=== PATIENT | female | born 1995 | race Caucasian/White ===

== ENCOUNTER 2017-06-20 08:23 | Emergency (ER) | payer BC ==
[~2017-06-20] VITALS: Ht 172.7 cm; Wt 96.2 kg
[2017-06-20 08:30] VITALS: BP 105/79
--- NOTE | 2017-06-20 08:36 | NUR ---
PT AMBULATED TO ER BED 10
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
[2017-06-20 09:39] VITALS: BP 105/79
--- NOTE | 2017-06-20 09:39 | NUR ---
Patient discharged with v/s stable. Written and verbal after care instructions given and explained. Patient verbalized understanding. Ambulatory with steady gait. All questions addressed prior to discharge. Advised to follow up with PMD.
== END 2017-06-20 09:39 | disposition home or self-care (01) ==
LOC: MED 08:23
DX: S61.412A Laceration without foreign body of left hand, initial encounter (principal); S63.502A Unspecified sprain of left wrist, initial encounter; Z90.89 Acquired absence of other organs; Z88.1 Allergy status to other antibiotic agents; Z88.8 Allergy status to other drugs, medicaments and biological substances; W01.0XXA Fall on same level from slipping, tripping and stumbling without subsequent striking against object, initial encounter; Y93.89 Activity, other specified; Y92.89 Other specified places as the place of occurrence of the external cause; Y99.8 Other external cause status
CPT/HCPCS: 12001; 73110; 90471; 90715; 99284; Q0092